=== PATIENT | female | born 1940 | race Caucasian/White ===

== ENCOUNTER 2016-09-25 23:41 | Inpatient (IN) | payer MEDICARE, OTHER ==
[~2016-09-25] VITALS: Ht 162.6 cm; Wt 68.5 kg
[~2016-09-25 23:41] MED LIST: AMLO2.5T PO; ATOR20TA PO; BLOO-129 IN; CARV6.252 PO; DIGO125T20 PO; FERR325T30 PO; FURO40TA5 PO; INSU100V27 SQ; INSU100V7 SQ; LEVO75TA7 PO; LOSA50TA21 PO; NATE120T6 PO; SPIR25TA4 PO; WARF2TAB57 PO
--- NOTE | 2016-09-26 05:15 | NUR ---
RN NOTE PT ARRIVED ON UNIT FROM [place]. AAOX3, IVORIAN/LATVIAN SPEAKING. NO C/O PAIN OR DISCOMFORT AT THIS TIME. COUGH NOTED. C/O OF SOB. PUT ON 2L NC SATTING 97%, HOB ELEVATED 30 DEGREES. SKIN WARM TO TOUCH, NON DIAPHORETIC. SKIN ISSUES NOTED. HARD TO GET A GOOD HEALTH HX FROM PT, SHE STATES SHE GETS CONFUSED. PAGED, AWAITING ORDERS. ORIENATED TO UNIT AND CALL LIGHT. WILL CONT TO MONITOR.
[2016-09-26] MEDS ORDERED: MAG HYDROX/AL HYDROX/SIMETH 30 ML UDC PO PRN (06:00)
[2016-09-26] MEDS ORDERED: ACETAMINOPHEN 325 MG TABLET PO PRN (06:00)
[2016-09-26] MEDS ORDERED: HYDROCODONE/APAP 5/325MG 1 EACH TABLET PO PRN (06:00)
[2016-09-26] MEDS ORDERED: LEVOFLOXACIN 500 MG /D5W 100ML 500 MG in PREMIX 1 EA IV SCH (06:00)
[2016-09-26] MEDS ORDERED: Z GUARD REMEDY 2 OZ OINT TP PRN (06:00)
[2016-09-26] MEDS ORDERED: ZOLPIDEM TARTRATE 5 MG TABLET PO PRN (06:00)
[2016-09-26] MEDS ORDERED: ONDANSETRON HCL/PF 4 MG/2 ML VIAL IVP PRN (06:00)
[2016-09-26] MEDS: PIPERACILLIN /TAZOBACTAM 3.375 G in IV D5W 50 ML IV SCH ×4 (06:00→17:34)
[2016-09-26] MEDS ORDERED: MAGNESIUM HYDROXIDE 30 ML UDC PO PRN (06:00)
--- NOTE | 2016-09-26 06:33 | NUR ---
RN NOTE ANTIBIOTICS PER MD, HOLD ORDERED ABX UNTIL 2100 TONIGHT. WILL NOTIFY PHARMACY. PT RECEIVED 1 G VANCO, 500 MG ZITHROMAX 1 G CEFEPINE AT [facility] 09/25 2099.
[2016-09-26] MEDS ORDERED: IV NS 0.9% 250 ML IV ONE (07:32)
[2016-09-26] MEDS ORDERED: SECONDARY IV SET 1 EA INFUS.SET MC ONE ×2 (07:32→21:27)
[2016-09-26] MEDS ORDERED: IV SET PRIMARY PUMP SET 1 EA INFUS.SET MC ONE ×2 (07:32→07:33)
[2016-09-26 07:50] LABS: PROTHROMBIN TIME 55.8 SECS (9.5-12.7)
--- NOTE | 2016-09-26 07:50 | NUR ---
m/s recreation officer: notes bs [phone]=[phone]. instructed to call for assistance. will monitor.
[2016-09-26 07:51] VITALS: BP 153/63
[2016-09-26 07:56] LABS: INR 4.72 (0.87-1.13)
[2016-09-26 08:00] VITALS: BP 149/77
--- NOTE | 2016-09-26 08:00 | NUR ---
m/s informatics nurse: notes venancio collins ([facility]) here and informed him re: inr result=4.72 with order to hold coumadin dose today. order read back and carried out. will continue to monitor.
[2016-09-26] MEDS: FUROSEMIDE 40 MG TABLET PO SCH (08:54)
[2016-09-26] MEDS: LEVOTHYROXINE SODIUM 75 MCG TABLET PO SCH (08:54)
[2016-09-26] MEDS: NATEGLINIDE 60 MG TABLET PO SCH ×2 (08:54→16:40)
[2016-09-26] MEDS: LOSARTAN POTASSIUM 50 MG TABLET PO SCH (08:54)
[2016-09-26] MEDS: AMLODIPINE BESYLATE 2.5 MG TABLET PO SCH (08:54)
[2016-09-26] MEDS: FERROUS SULFATE (325 MG) 325 MG/TAB TABLET PO SCH (08:55)
[2016-09-26] MEDS: CARVEDILOL 6.25 MG TABLET PO SCH ×2 (08:55→16:40)
[2016-09-26] MEDS: SPIRONOLACTONE 25 MG TABLET PO SCH (08:55)
[2016-09-26] MEDS ORDERED: BLOOD SUGAR DIAGNOSTIC 1 EACH STRIP IN SCH ×2 (09:00→12:00)
[2016-09-26] MEDS ORDERED: WARFARIN SODIUM 2 MG TABLET PO SCH ×2 (09:00)
[2016-09-26] MEDS ORDERED: INSULIN LISPRO 12 UNIT SQ SCH (09:00)
[2016-09-26] MEDS: INSULIN DETEMIR 100 UNIT/ML CARTRIDGE SQ SCH (09:00)
--- NOTE | 2016-09-26 09:10 | NUR ---
m/s funeral service practitioner/embalmer: notes clarify humalog and levemir insulin to pt, but cannot recall, stated, "call my son." called mayco (son) and inform me that pt doesn't take humalog anymore routinely, but it depends on her blood sugar result, and levemir was decrease to 10 units in the morning. Pharmacist (alejo) notified and made aware. awaiting for dr. harris.
--- NOTE | 2016-09-26 10:05 | NUR ---
m/s detective chief: notes dr. harris here and informed pt that pt is on zosyn ivpb and levaquin; also needs sliding scale and informed her that she is no longer on humalog routinely and her lantus has been decrease to 10units daily per family. dr. harris will look into it as stated. will continue to monitor.
[2016-09-26 11:29] LABS: BASOPHILS % (AUTO) 0.2 % (0.0-2.0); EOSINOPHILS # (AUTO) 0.1 /CMM (0.0-0.7); EOSINOPHILS % (AUTO) 1.3 % (0.0-6.0); HEMATOCRIT 29 % (33-45); HEMOGLOBIN 9.7 g/dL (11.5-14.8); LYMPHOCYTES # (AUTO) 0.8 /CMM (0.8-4.8); LYMPHOCYTES % (AUTO) 12.2 % (20.0-44.0); MEAN CORPUSCULAR HEMOGLOBIN 30 PG (26.0-33.0); MEAN CORPUSCULAR HGB CONC 33 g/dl (31.0-36.0); MEAN CORPUSCULAR VOLUME 92 fL (82-100); MONOCYTES # (AUTO) 0.6 /CMM (0.1-1.30); MONOCYTES % (AUTO) 8.8 % (2.0-12.0); NEUTROPHILS # (AUTO) 5.2 /CMM (1.8-8.9); NEUTROPHILS % (AUTO) 77.5 % (43.0-81.0); PLATELET COUNT (AUTO) 201 /CMM (150-450); RDW COEFFICIENT OF VARIATION 14.9 (11.5-15.0); RED BLOOD CELL COUNT(AUTO) 3.19 MIL/uL (4.0-5.2); WHITE BLOOD COUNT (AUTO) 6.7 K/uL (4.3-11.0)
[2016-09-26] MEDS ORDERED: DEXTROSE 50%-WATER 50 ML DISP.SYRIN IV PRN (11:30)
--- NOTE | 2016-09-26 12:00 | NUR ---
m/s typing pool supervisor: notes lunch served with hob elevated. instructed to call for assistance. will monitor.
[2016-09-26] MEDS: BLOOD SUGAR DIAGNOSTIC 1 EACH STRIP VI SCH ×3 (12:19→21:22)
[2016-09-26 12:22] LABS: LACTIC ACID 0.5 mmol/L (0.4-2.0)
[2016-09-26] MEDS: INSULIN REGULAR, HUMAN 100 UNIT/ML 3 ML VIAL SQ PRN ×2 (12:57→21:25)
[2016-09-26] MEDS ORDERED: INSULIN LISPRO 8 UNIT SQ SCH (13:00)
[2016-09-26] MEDS: DIGOXIN 0.125 MG TABLET PO SCH (13:01)
[2016-09-26] MEDS ORDERED: hydrALAZINE HCL 25 MG TABLET PO PRN (14:00)
[2016-09-26 16:00] VITALS: BP 132/71
--- NOTE | 2016-09-26 16:30 | NUR ---
m/s caul puller: notes son visiting at this time and updated plan of care.
[2016-09-26] MEDS: GUAIFENESIN 300 MG/15 ML UDC PO PRN (16:40)
[2016-09-26] MEDS ORDERED: FEE PK DOSING 1 MIN EA MC ONE (16:59)
[2016-09-26] MEDS ORDERED: LEVOFLOXACIN 250 MG /D5W 50 ML 250 MG in PREMIX 1 EA IV SCH (17:00)
--- NOTE | 2016-09-26 19:00 | NUR ---
m/s banquet line cook: notes report given to ramonita (rn) for continuity of care
--- NOTE | 2016-09-26 19:05 | NUR ---
RN NOTES RECEIVED PT AWAKE, HOB ELEVATED, PT ALERT AND ORIENTED X3, NO SOB, NO SIGNS OF DISTRESS. PT DENIES ANY PAIN AND DISCOMFORT, ON O2 INHALATION VIA NC AT 2LPM AND TOLERATED WELL. COUGH AT TIMES, NON PRODUCTIVE. DIMINISHED LUNG SOUNDS UPON AUSCULTATION. IV ACCESS ON LEFT FORE ARM PATENT AND INTACT. KEPT BED IN THE LOWEST POSITION, LOCKED, SIDE RAILS X2 UP, WITH CALL LIGHT WITH IN REACH. KEPT COMFORTABLE AND ATTENDED. WILL CONTINUE TO MONITOR PT. Addendum: 09/27/16 at 0 by NOEL PRICE RN DISREGARD. WRONG DATE OF ENTRY.
[2016-09-26 19:19] LABS: ALBUMIN 3.3 g/dL (3.4-5.0); BILIRUBIN,DIRECT 0.1 mg/dL (0.0-0.2); BILIRUBIN,TOTAL 0.4 mg/dL (0.2-1.0); TOTAL PROTEIN, SERUM 7.1 g/dL (6.4-8.2)
--- NOTE | 2016-09-26 19:30 | NUR ---
MS RN NOTE PATIENT ASLEEP IN BED. EASILY AROUSABLE. NO RESPIRATORY DISTRESS OR SOB NOTED. IV SITE INTACT WITH FLUIDS RUNNING ORDERED. BED LOCKED AND IN LOWEST POSITION, SIDE RAILS UP, CALL LIGHT WITHIN REACH. WILL CONTINUE TO MONITOR.
[2016-09-26 20:00] VITALS: BP 113/59
[2016-09-26 20:04] VITALS: BP 113/59
[2016-09-26] MEDS ORDERED: VANCOMYCIN 1 GM in IV D5W 250 ML IV SCH (21:00)
[2016-09-26] MEDS: ATORVASTATIN 10 MG TABLET PO SCH (21:21)
[2016-09-27] MEDS: PIPERACILLIN /TAZOBACTAM 3.375 G in IV D5W 50 ML IV SCH ×4 (01:03→17:17)
--- NOTE | 2016-09-27 06:33 | NUR ---
MS RN NOTE PATIENT STABLE. BLOOD SUGAR 135. 2 UNITS GIVEN. WILL ENDORSE TO DAY SHIFT FOR JAMAR.
[2016-09-27] MEDS: LEVOTHYROXINE SODIUM 75 MCG TABLET PO SCH (06:57)
[2016-09-27] MEDS: BLOOD SUGAR DIAGNOSTIC 1 EACH STRIP VI SCH ×4 (06:59→21:33)
[2016-09-27] MEDS: INSULIN REGULAR, HUMAN 100 UNIT/ML 3 ML VIAL SQ PRN ×3 (06:59→17:01)
[2016-09-27] MEDS: GUAIFENESIN 300 MG/15 ML UDC PO PRN ×3 (07:04→20:00)
[2016-09-27 08:00] VITALS: BP 116/62
--- NOTE | 2016-09-27 08:00 | NUR ---
m/s physically impaired teacher: initial assessment received pt in bed awake, a/ox3 with dx: pneumonia. no c/o sob, but still with occ non-productive cough. breath sounds diminished jania lobes upon auscultation. instructed to call for assistance. will continue to monitor.
[2016-09-27 08:08] LABS: BASOPHILS % (AUTO) 0.1 % (0.0-2.0); EOSINOPHILS # (AUTO) 0.1 /CMM (0.0-0.7); EOSINOPHILS % (AUTO) 0.7 % (0.0-6.0); HEMATOCRIT 29 % (33-45); HEMOGLOBIN 9.6 g/dL (11.5-14.8); MEAN CORPUSCULAR HEMOGLOBIN 31 PG (26.0-33.0); MEAN CORPUSCULAR HGB CONC 34 g/dl (31.0-36.0); MEAN CORPUSCULAR VOLUME 91 fL (82-100); MONOCYTES # (AUTO) 0.9 /CMM (0.1-1.30); NEUTROPHILS # (AUTO) 6.9 /CMM (1.8-8.9); NEUTROPHILS % (AUTO) 78.2 % (43.0-81.0); PLATELET COUNT (AUTO) 224 /CMM (150-450); RDW COEFFICIENT OF VARIATION 14.5 (11.5-15.0); RED BLOOD CELL COUNT(AUTO) 3.14 MIL/uL (4.0-5.2); WHITE BLOOD COUNT (AUTO) 8.9 K/uL (4.3-11.0)
[2016-09-27 08:12] LABS: CALCIUM, SERUM 8.6 mg/dL (8.5-10.1); CREATININE 1.8 mg/dL (0.6-1.3); INR 3.52 (0.87-1.13); MAGNESIUM 1.8 mg/dL (1.8-2.4); PHOSPHORUS 3.1 mg/dL (2.5-4.9); POTASSIUM 4.1 mmol/L (3.5-5.1); PROTHROMBIN TIME 40.8 SECS (9.5-12.7)
[2016-09-27] MEDS: AMLODIPINE BESYLATE 2.5 MG TABLET PO SCH (08:34)
[2016-09-27] MEDS: LOSARTAN POTASSIUM 50 MG TABLET PO SCH (08:34)
[2016-09-27] MEDS: NATEGLINIDE 60 MG TABLET PO SCH ×2 (08:37→16:45)
[2016-09-27] MEDS: FERROUS SULFATE (325 MG) 325 MG/TAB TABLET PO SCH (08:37)
[2016-09-27] MEDS: FUROSEMIDE 40 MG TABLET PO SCH (08:38)
[2016-09-27] MEDS: SPIRONOLACTONE 25 MG TABLET PO SCH (08:38)
[2016-09-27] MEDS: CARVEDILOL 6.25 MG TABLET PO SCH ×2 (08:39→16:45)
[2016-09-27] MEDS: INSULIN DETEMIR 100 UNIT/ML CARTRIDGE SQ SCH (08:39)
--- NOTE | 2016-09-27 10:00 | NUR ---
m/s roving department supervisor: notes resting comfortable in bed with no distress noted. will monitor.
--- NOTE | 2016-09-27 12:00 | NUR ---
m/s commodity supervisor: garden center manager consult seen by dr. santacruz with no new order.
[2016-09-27] MEDS: DIGOXIN 0.125 MG TABLET PO SCH (13:24)
[2016-09-27 16:00] VITALS: BP 114/71
--- NOTE | 2016-09-27 16:00 | NUR ---
m/s bacteriologist food: nephro f/u seen by dr. manrique.
[2016-09-27] MEDS ORDERED: WARFARIN SODIUM 2 MG TABLET PO SCH (17:00)
--- NOTE | 2016-09-27 18:00 | NUR ---
m/s attending anesthesiologist: notes having dinner with hob elevated at 90 degree at this time. no c/o pain, sob, or any discomfort. needs attended. instructed to call for assistance. will continue to monitor.
--- NOTE | 2016-09-27 19:05 | NUR ---
RN NOTES RECEIVED PT AWAKE, HOB ELEVATED, PT ALERT AND ORIENTED X3, NO SOB, NO SIGNS OF DISTRESS. PT DENIES ANY PAIN AND DISCOMFORT, ON O2 INHALATION VIA NC AT 2LPM AND TOLERATED WELL. COUGH AT TIMES, NON PRODUCTIVE. DIMINISHED LUNG SOUNDS UPON AUSCULTATION. IV ACCESS ON LEFT FORE ARM PATENT AND INTACT. KEPT BED IN THE LOWEST POSITION, LOCKED, SIDE RAILS X2 UP, WITH CALL LIGHT WITH IN REACH. KEPT COMFORTABLE AND ATTENDED. WILL CONTINUE TO MONITOR PT.
[2016-09-27 20:00] VITALS: BP 110/63
--- NOTE | 2016-09-27 20:00 | NUR ---
RN NOTES PT HEARD KEEPS ON COUGHING, ROBITUSSIN 300MG/15ML UDC GIVEN PO AND TOLERATED WELL. WILL CONTINUE TO MONITOR PT.
[2016-09-27] MEDS: LEVOFLOXACIN (500MG) 500 MG TABLET PO SCH (20:19)
[2016-09-27] MEDS: DOXYCYCLINE HYCLATE (100 MG) 100 MG TABLET PO SCH (21:28)
[2016-09-27] MEDS: ATORVASTATIN 10 MG TABLET PO SCH (21:28)
--- NOTE | 2016-09-27 21:33 | NUR ---
RN NOTES BLOOD SUGAR CHECKED 127 MG/DL, NO INSULIN COVERAGE PER SLIDING SCALE.
[2016-09-27 22:00] VITALS: BP 110/63
[2016-09-28] MEDS: GUAIFENESIN 300 MG/15 ML UDC PO PRN ×3 (06:01→17:58)
--- NOTE | 2016-09-28 06:01 | NUR ---
RN NOTES PT WAKES UP COUGHING, NON PRODUCTIVE. ROBITUSSIN 300 MG/15ML UDC GIVEN PO AND TOLERATED WELL. WILL CONTINUE TO MONITOR PT.
[2016-09-28] MEDS: BLOOD SUGAR DIAGNOSTIC 1 EACH STRIP VI SCH ×4 (06:17→22:21)
--- NOTE | 2016-09-28 06:17 | NUR ---
RN NOTES BLOOD SUGAR CHECKED 124 MG/DL, NO INSULIN COVERAGE PER SLIDING SCALE.
--- NOTE | 2016-09-28 07:00 | NUR ---
MS RN INITIAL NOTES REPORT RECEIVED AT THE BEDSIDE. PATIENT IS SLEEPING. NO SOB OR DISTRESS NOTED AT THIS TIME. PATIENT DOES NOT APPEAR TO BE IN PAIN, NO FACIAL GRIMACE NOTED. BED IN A LOW POSITION, CALL LIGHT WITHIN PATIENT REACH. WILL CONTINUE TO MONITOR.
--- NOTE | 2016-09-28 07:11 | NUR ---
RN NOTES PT ASLEEP, HOB ELEVATED, NO SOB, NOT IN DISTRESS TOLERATING O2 INHALATION VIA NC AT 2LPM. VITAL SIGNS STABLE, AFEBRILE. NO EPISODE OF NAUSEA AND VOMITING. DENIES ANY PAIN AND DISCOMFORT. COUGH AT TIMES, NON PRODUCTIVE . ABLE TO AMBULATE WITH STEADY GAIT GOING TO THE BATHROOM. ALL DUE MEDS GIVEN, AND TOLERATED WELL. ALL NEEDS ATTENDED. ENDORSED TO MORNING RN FOR CONTINUITY OF CARE.
[2016-09-28 08:00] VITALS: BP 117/62
[2016-09-28 08:04] LABS: CALCIUM, SERUM 8.8 mg/dL (8.5-10.1); CREATININE 2.1 mg/dL (0.6-1.3); MAGNESIUM 1.8 mg/dL (1.8-2.4); POTASSIUM 4.3 mmol/L (3.5-5.1)
[2016-09-28] MEDS: FERROUS SULFATE (325 MG) 325 MG/TAB TABLET PO SCH (08:16)
[2016-09-28] MEDS: DOXYCYCLINE HYCLATE (100 MG) 100 MG TABLET PO SCH ×2 (08:16→21:32)
[2016-09-28] MEDS: NATEGLINIDE 60 MG TABLET PO SCH ×2 (08:16→16:50)
[2016-09-28] MEDS: LEVOTHYROXINE SODIUM 75 MCG TABLET PO SCH (08:16)
[2016-09-28] MEDS: CARVEDILOL 6.25 MG TABLET PO SCH ×2 (08:16→16:50)
[2016-09-28] MEDS: FUROSEMIDE 40 MG TABLET PO SCH (08:17)
[2016-09-28] MEDS: SPIRONOLACTONE 25 MG TABLET PO SCH (08:17)
[2016-09-28] MEDS: INSULIN DETEMIR 100 UNIT/ML CARTRIDGE SQ SCH (08:18)
[2016-09-28 08:54] LABS: INR 3.09 (0.87-1.13); PROTHROMBIN TIME 35.5 SECS (9.5-12.7)
[2016-09-28] MEDS: DIGOXIN 0.125 MG TABLET PO SCH (12:01)
[2016-09-28] MEDS: IV NS 0.9% 1,000 ML IV PRN (12:02)
[2016-09-28] MEDS: INSULIN REGULAR, HUMAN 100 UNIT/ML 3 ML VIAL SQ PRN ×2 (12:03→16:51)
[2016-09-28 13:28] LABS: APPEARANCE,URINE CLEAR (CLEAR); BILIRUBIN,URINE NEGATIVE (NEGATIVE); BLOOD, URINE TRACE Ery/uL (NEGATIVE); COLOR,URINE YELLOW (YELLOW); KETONES,URINE NEGATIVE (NEGATIVE); LEUKOCYTE ESTERASE ,URINE NEGATIVE (NEGATIVE); NITRITE, URINE NEGATIVE (NEGATIVE); PROTEIN,URINE NEGATIVE (NEGATIVE); UGLUCOSE NEGATIVE (NEGATIVE); UROBILINOGEN,URINE 0.2 EU/dL (0.2)
[2016-09-28 13:38] LABS: ADD URINE CULTURE NO; BACTERIA,URINE None seen /HPF (None Seen); RBC,URINE 0-2 /HPF (0-2); SQUAMOUS EPITHELIAL CELL,UR Few /HPF (None Seen); WBC,URINE NONE SEEN /HPF (0-3)
[2016-09-28 13:51] LABS: EOSINOPHIL,URINE None Seen
[2016-09-28 16:00] VITALS: BP 120/69
[2016-09-28 17:12] VITALS: BP 120/69
[2016-09-28 18:39] LABS: CREATININE, URINE 111.1 MG/DL (30.0-125.0); URINE TOTAL PROTEIN 23.6 mg/dL (0-11.9)
--- NOTE | 2016-09-28 18:45 | NUR ---
MS RN CLOSING NOTES NO SIGNIFICANT CHANGES IN PATIENT CONDITION THROUGHOUT THE SHIFT. NO SOB OR DISTRESS NOTED AT THIS TIME. PATIENT DENIES PAIN. BED IN A LOW POSITION, CALL LIGHT WITHIN PATIENT REACH. WILL ENDORSE FOR JAMAR.
--- NOTE | 2016-09-28 19:25 | NUR ---
MS/BASE LOADER; RECEIVED PT. IN BED AWAKE, ALERT AND ORIENTED. DENIES PAIN. BREATHING NON LABORED. WITH O2 2L NC ON. WITH OCC. DRY COUGH. IVF ON PROGRESS. BED ON LOWER POSITION AND LOCKED FOR SAFETY. SIDE RAILS ARE UP FOR SAFETY. PT INSTRUCTED TO CALL FOR HELP AND CALL LIGHT WITHIN REACH. WILL CONTINUE TO MONITOR.
[2016-09-28 20:00] VITALS: BP_SYST 133; BP_SYST 149; BP_DIAS 64; BP_DIAS 75
[2016-09-28] MEDS: LEVOFLOXACIN (500MG) 500 MG TABLET PO SCH (21:03)
[2016-09-28] MEDS: ATORVASTATIN 10 MG TABLET PO SCH (21:33)
--- NOTE | 2016-09-28 22:00 | NUR ---
MS/PRINTER HELPER; BS 117 NO COVERAGE GIVEN.
--- NOTE | 2016-09-29 00:25 | NUR ---
MS/ASSISTANT HVAC MECHANIC; PT AWAKE COUGHING AND WANTS COUGH MED. ROBITUSSIN 300 MG PO 15 ML Q6 PRN GIVEN ORDERED.
[2016-09-29] MEDS: GUAIFENESIN 300 MG/15 ML UDC PO PRN ×2 (00:26→22:00)
[2016-09-29] MEDS: IV NS 0.9% 1,000 ML IV PRN ×2 (01:09→19:36)
[2016-09-29] MEDS: BLOOD SUGAR DIAGNOSTIC 1 EACH STRIP VI SCH ×4 (05:37→21:54)
--- NOTE | 2016-09-29 06:00 | NUR ---
MS/SUPERVISOR EXTRUDING DEPARTMENT; BS 109 NO COVERAGE.
[2016-09-29 06:32] LABS: BASOPHILS % (AUTO) 0.4 % (0.0-2.0); EOSINOPHILS # (AUTO) 0.2 /CMM (0.0-0.7); EOSINOPHILS % (AUTO) 2.3 % (0.0-6.0); HEMATOCRIT 27 % (33-45); HEMOGLOBIN 9.1 g/dL (11.5-14.8); LYMPHOCYTES # (AUTO) 1.1 /CMM (0.8-4.8); LYMPHOCYTES % (AUTO) 14.2 % (20.0-44.0); MEAN CORPUSCULAR HEMOGLOBIN 31 PG (26.0-33.0); MEAN CORPUSCULAR HGB CONC 34 g/dl (31.0-36.0); MEAN CORPUSCULAR VOLUME 92 fL (82-100); MONOCYTES # (AUTO) 0.9 /CMM (0.1-1.30); MONOCYTES % (AUTO) 11.8 % (2.0-12.0); NEUTROPHILS # (AUTO) 5.3 /CMM (1.8-8.9); NEUTROPHILS % (AUTO) 71.3 % (43.0-81.0); PLATELET COUNT (AUTO) 282 /CMM (150-450); RDW COEFFICIENT OF VARIATION 14.3 (11.5-15.0); RED BLOOD CELL COUNT(AUTO) 2.92 MIL/uL (4.0-5.2); WHITE BLOOD COUNT (AUTO) 7.4 K/uL (4.3-11.0)
[2016-09-29 06:37] LABS: INR 2.69 (0.87-1.13); PROTHROMBIN TIME 30.6 SECS (9.5-12.7)
--- NOTE | 2016-09-29 06:44 | NUR ---
MS/STAFF RESEARCH SCIENTIST; SLEPT FAIRLY. IVF ON PROGRESS. DENIES PAIN. BREATHING NON LABORED. CONTINUE TO MONITOR. CALL LIGHT WITHIN REACH. WILL ENDORSE TO THE DAY SHIFT NURSE.
[2016-09-29 06:59] LABS: ALBUMIN 2.9 g/dL (3.4-5.0); BILIRUBIN,TOTAL 0.4 mg/dL (0.2-1.0); MAGNESIUM 1.9 mg/dL (1.8-2.4); PHOSPHORUS 3.2 mg/dL (2.5-4.9); POTASSIUM 4.2 mmol/L (3.5-5.1); TOTAL PROTEIN, SERUM 6.8 g/dL (6.4-8.2)
--- NOTE | 2016-09-29 07:25 | NUR ---
RN MS NOTES PATIENT IN BED, ALERT AND ORIENTED, DENIES PAIN OR DISCOMFORT AT THIS TIME, DISCUSSED PLAN OF CARE FOR TODAY AND AGREED, SAFETY MEASURES IN PLACED, CALL LIGHT WITHIN REACH, WILL CONTINUE TO MONITOR.
[2016-09-29 08:00] VITALS: BP 135/73
[2016-09-29] MEDS: FERROUS SULFATE (325 MG) 325 MG/TAB TABLET PO SCH (08:25)
[2016-09-29] MEDS: DOXYCYCLINE HYCLATE (100 MG) 100 MG TABLET PO SCH ×2 (08:25→20:52)
[2016-09-29] MEDS: SPIRONOLACTONE 25 MG TABLET PO SCH (08:25)
[2016-09-29] MEDS: LEVOTHYROXINE SODIUM 75 MCG TABLET PO SCH (08:25)
[2016-09-29] MEDS: NATEGLINIDE 60 MG TABLET PO SCH ×2 (08:26→17:10)
[2016-09-29] MEDS: CARVEDILOL 6.25 MG TABLET PO SCH ×2 (08:26→17:10)
[2016-09-29] MEDS: INSULIN DETEMIR 100 UNIT/ML CARTRIDGE SQ SCH (08:36)
[2016-09-29 09:51] LABS: APPEARANCE,URINE CLEAR (CLEAR); BILIRUBIN,URINE NEGATIVE (NEGATIVE); BLOOD, URINE TRACE-INTA Ery/uL (NEGATIVE); COLOR,URINE YELLOW (YELLOW); KETONES,URINE NEGATIVE (NEGATIVE); LEUKOCYTE ESTERASE ,URINE NEGATIVE (NEGATIVE); NITRITE, URINE NEGATIVE (NEGATIVE); PH,URINE 5.5 (5.0-8.0); PROTEIN,URINE NEGATIVE (NEGATIVE); UGLUCOSE NEGATIVE (NEGATIVE); UROBILINOGEN,URINE 0.2 EU/dL (0.2)
[2016-09-29 09:54] LABS: ADD URINE CULTURE NO; BACTERIA,URINE None seen /HPF (None Seen); EOSINOPHIL,URINE None Seen; RBC,URINE 0-2 /HPF (0-2); SQUAMOUS EPITHELIAL CELL,UR Few /HPF (None Seen); WBC,URINE NONE SEEN /HPF (0-3)
[2016-09-29 09:58] LABS: CREATININE, URINE 45.4 MG/DL (30.0-125.0); URINE TOTAL PROTEIN 20.2 mg/dL (0-11.9)
--- NOTE | 2016-09-29 12:00 | NUR ---
RN MS NOTES BLOOD SUGAR 227, 6 UNITS GIVEN. PATIENT SITTING ON THE CHAIR, NO DISTRESS NOTED.
[2016-09-29] MEDS: INSULIN REGULAR, HUMAN 100 UNIT/ML 3 ML VIAL SQ PRN ×2 (12:05→17:16)
[2016-09-29] MEDS: DIGOXIN 0.125 MG TABLET PO SCH (13:13)
[2016-09-29 16:00] VITALS: BP 127/61
--- NOTE | 2016-09-29 17:00 | NUR ---
RN MS NOTES ALL DUE MEDS GIVEN, BS 248 6 UNITS GIVEN, WILL CONTINUE TO MONITOR.
[2016-09-29] MEDS: WARFARIN SODIUM 2.5 MG TABLET PO SCH (17:11)
--- NOTE | 2016-09-29 18:36 | NUR ---
RN MS NOTES PATIENT SITTING ON THE CHAIR, ALERT AND ORIENTED, NO SIGNIFICANT CHANGES THIS SHIFT, DENIES PAIN OR DISCOMFORT, FAMILY AT BEDSIDE, BROUGHT CAKE TO CELEBRATE PATIENT'S BIRTHDAY TODAY, ALL DUE MEDS PROVIDED, PIV ON LFA PATENT AND INTACT WITH NS INFUSING AT 75ML/HR. SAFETY MEASURES IN PLACED, CALL LIGHT WITHIN REACH, WILL ENDORSE TO VACUUM TRUCK DRIVER.
--- NOTE | 2016-09-29 19:15 | NUR ---
MS/REHAB SERVICES AIDE; RECEIVED PT. IN BED AWAKE, ALERT AND ORIENTED. DENIES PAIN. BREATHING NON LABORED. NO S/S OF DISTRESS. IVF ON PROGRESS. BED ON LOWER POSITION AND LOCKED FOR SAFETY. UPPER PART OF BED SIDE RAILS ARE UP FOR SAFETY. PT INSTRUCTED TO CALL FOR HELP AND CALL LIGHT WITHIN REACH. WILL CONTINUE TO MONITOR.
[2016-09-29] MEDS: LEVOFLOXACIN (500MG) 500 MG TABLET PO SCH (19:42)
[2016-09-29 20:17] VITALS: BP 120/58
[2016-09-29] MEDS: *INSULIN REGULAR(HUMULIN R)HUM 100 UNIT/ML VIAL SQ PRN (21:47)
[2016-09-29] MEDS: ATORVASTATIN 10 MG TABLET PO SCH (21:59)
--- NOTE | 2016-09-29 22:00 | NUR ---
MS/PROVISIONING SPECIALIST; BS 144 COVERED WITH 2 UNITS REGULAR INSULIN SQ. COUGH MED GIVEN AT THIS TIME ALSO ROBITUSSIN 300 MG / 15 ML PO Q6 PRN.
[2016-09-30] MEDS: BLOOD SUGAR DIAGNOSTIC 1 EACH STRIP VI SCH ×4 (06:00→22:47)
--- NOTE | 2016-09-30 06:00 | NUR ---
MS/AIR OPERATIONS MANAGER; BS 129 NO COVERAGE GIVEN.
[2016-09-30] MEDS: GUAIFENESIN 300 MG/15 ML UDC PO PRN ×2 (06:07→17:19)
--- NOTE | 2016-09-30 07:00 | NUR ---
MS/COOPERATIVE MANAGER; SLEPT FAIRLY. COUGH STILL NOTED. VOIDED AND HAD BM X 1. DENIES PAIN. BREATHING NON LABORED. CONTINUE TO MONITOR. CALL LIGHT WITHIN REACH. WILL ENDORSE TO THE DAY SHIFT NURSE.
--- NOTE | 2016-09-30 07:15 | NUR ---
RN MS NOTES PATIENT IN BED, ALERT AND ORIENTED, DENIES PAIN OR DISCOMFORT AT THIS TIME, NO DISTRESS NOTED, SAFETY MEASURES IN PLACED, CALL LIGHTW ITHIN REACH WILL CONTINUE TO MONITOR.
[2016-09-30 07:18] LABS: BASOPHILS % (AUTO) 0.4 % (0.0-2.0); EOSINOPHILS # (AUTO) 0.2 /CMM (0.0-0.7); EOSINOPHILS % (AUTO) 3.2 % (0.0-6.0); HEMATOCRIT 28 % (33-45); HEMOGLOBIN 9.4 g/dL (11.5-14.8); LYMPHOCYTES % (AUTO) 14.2 % (20.0-44.0); MEAN CORPUSCULAR HEMOGLOBIN 31 PG (26.0-33.0); MEAN CORPUSCULAR HGB CONC 34 g/dl (31.0-36.0); MEAN CORPUSCULAR VOLUME 92 fL (82-100); MONOCYTES # (AUTO) 0.8 /CMM (0.1-1.30); MONOCYTES % (AUTO) 11.5 % (2.0-12.0); NEUTROPHILS % (AUTO) 70.7 % (43.0-81.0); PLATELET COUNT (AUTO) 328 /CMM (150-450); RDW COEFFICIENT OF VARIATION 14.2 (11.5-15.0); RED BLOOD CELL COUNT(AUTO) 3.06 MIL/uL (4.0-5.2)
[2016-09-30 07:28] LABS: CREATININE 1.8 mg/dL (0.6-1.3); MAGNESIUM 1.8 mg/dL (1.8-2.4); POTASSIUM 4.5 mmol/L (3.5-5.1)
[2016-09-30 08:04] VITALS: BP 142/76
[2016-09-30] MEDS: CARVEDILOL 6.25 MG TABLET PO SCH ×2 (08:44→17:13)
[2016-09-30] MEDS: NATEGLINIDE 60 MG TABLET PO SCH ×2 (08:44→17:13)
[2016-09-30] MEDS: LEVOTHYROXINE SODIUM 75 MCG TABLET PO SCH (08:44)
[2016-09-30] MEDS: DOXYCYCLINE HYCLATE (100 MG) 100 MG TABLET PO SCH ×2 (08:44→20:12)
[2016-09-30] MEDS: SPIRONOLACTONE 25 MG TABLET PO SCH (08:44)
[2016-09-30] MEDS: FERROUS SULFATE (325 MG) 325 MG/TAB TABLET PO SCH (08:44)
[2016-09-30] MEDS: INSULIN DETEMIR 100 UNIT/ML CARTRIDGE SQ SCH (08:50)
[2016-09-30] MEDS: INSULIN REGULAR, HUMAN 100 UNIT/ML 3 ML VIAL SQ PRN (11:25)
--- NOTE | 2016-09-30 12:30 | NUR ---
RN MS NOTES PATIENT'S BS 192 AND GAVE 3 UNITS OF INSULIN, PIV ON LFA HEPLOCK, PATIENT TOLERATED CURRENT DIET, ENCOURAGED FLUIDS TOLERATED, PATIENT SITTING ON THE CHAIR, IN STABLE CONDITION. SAFETY MEASURES OBSERVED, WILL CONTINUE TO MONITOR.
[2016-09-30 13:13] LABS: PTH, INTACT 90 pg/mL (15-65)
[2016-09-30] MEDS: DIGOXIN 0.125 MG TABLET PO SCH (14:07)
[2016-09-30 16:05] VITALS: BP 147/72
[2016-09-30 16:54] LABS: INR 2.22 (0.87-1.13)
[2016-09-30] MEDS: WARFARIN SODIUM 2.5 MG TABLET PO SCH (17:17)
--- NOTE | 2016-09-30 17:30 | NUR ---
RN MS NOTES BS 80, NO INSULIN COVERAGE NEEDED, NO DISTRESS NOTED, PATIENT EATING DINNER, AND TOLERATING WELL, GUAIFENESIN MEDICINE ADMINISTERED FOR COUGH AT 1719, ALL DUE MEDS GIVEN, PATIENT IN STABLE CONDITION, DENIES PAIN AT THIS TIME, SAFETY MEASURES IN PLACED, ASSISTED WITH ADLS, CALL LIGHT WITHIN REACH, WILL ENDORSE TO SALES AND MARKETING ASSOCIATE FOR JAMAR.
--- NOTE | 2016-09-30 18:58 | NUR ---
RN MS NOTES NO SIGNIFICANT CHANGES THIS SHIFT, WILL ENDORSE TO CHIEF COMPLIANCE OFFICER FOR JAMAR.
--- NOTE | 2016-09-30 19:00 | NUR ---
RN NOTE RECEIVED REPORT. PT AWAKE AND ALERT X 3,. NO S/S OF PAIN OR DISCOMFORT, BREATHING EVEN AND NON-LABORED ON ROOM AIR. LFA INTACT AND PATENT H/L. CALL LIGHT IN REACH, FAMILY AT BEDSIDE. WILL CONT TO MONITOR.
[2016-09-30 20:00] VITALS: BP 118/66
[2016-09-30] MEDS: LEVOFLOXACIN (500MG) 500 MG TABLET PO SCH (20:12)
[2016-09-30] MEDS: ATORVASTATIN 10 MG TABLET PO SCH (20:37)
--- NOTE | 2016-09-30 20:59 | NUR ---
report given to martir for megan
--- NOTE | 2016-09-30 21:00 | NUR ---
RN INITIAL NOTE RECEIVED PT IN NO ACUTE DISTRESS IN BED. PT IS A/O X 3 AND ABLE TO MAKE NEEDS KNOWN. PT IS GREENLAND[place] SPEAKING, BUT UNDERSTANDS CENTRAL AFRICAN. PT IS ON 2L NC AND TOLERATING WELL WITH O2 SAT @ 98%. PT DENIES ANY SOB OR DIFFICULTY BREATHING, BUT STATED A HEADACHE AND PAIN MANAGEMENT WAS INITIATED AND PAIN MEDICATION WAS GIVEN. PT HAS LFA 18G THAT IS CLEAN DRY INTACT AND PATENT WITH SALINE FLUSH. BED IN LOW LOCK POSITION WITH RIALS UP X 2. CALL LIGHT WITHIN REACH AND ALL SAFETY MEASURES ENSURED AND CARRIED OUT. WILL CONTINUE TO MONITOR PT.
[2016-09-30] MEDS: *INSULIN REGULAR(HUMULIN R)HUM 100 UNIT/ML VIAL SQ PRN (22:45)
[2016-10-01] MEDS: BLOOD SUGAR DIAGNOSTIC 1 EACH STRIP VI SCH ×2 (06:33→12:14)
--- NOTE | 2016-10-01 06:39 | NUR ---
RN CLOSING NOTE PT REMAINS IN NO ACUTE DISTRESS IN BED. PT DID NOT HAVE ANY SIGNIFICANT CHANGE IN CONDITION DURING SHIFT. ALL NEEDS MET, ALL ORDERS CARRIED OUT AND ALL WOUND CARE ORDERS CARRIED OUT WELL. WILL ENDORSE REPORT TO AM RN FOR CONTINUITY OF CARE.
[2016-10-01 06:45] LABS: CALCIUM, SERUM 9.4 mg/dL (8.5-10.1); CREATININE 1.6 mg/dL (0.6-1.3); POTASSIUM 4.5 mmol/L (3.5-5.1)
--- NOTE | 2016-10-01 07:20 | NUR ---
M/S RN - OPENING NOTE PT RESTING IN BED, AOX4. NO S/S OF DISTRESS. DENIES SOB ON RA. C/O PRODUCTIVE COUGH WITH WHITE PHLEM. DENIES PAIN AT THIS TIME. IVF RUNNING ORDERED. SIDE RAILS UPX2, CALL LIGHT WITHIN REACH, BED LOCKED AND IN LOWEST POSITION.
[2016-10-01 08:00] VITALS: BP 147/76
[2016-10-01] MEDS: DOXYCYCLINE HYCLATE (100 MG) 100 MG TABLET PO SCH (08:37)
[2016-10-01 08:38] VITALS: BP 147/76
[2016-10-01] MEDS: FERROUS SULFATE (325 MG) 325 MG/TAB TABLET PO SCH (08:38)
[2016-10-01] MEDS: LEVOTHYROXINE SODIUM 75 MCG TABLET PO SCH (08:38)
[2016-10-01] MEDS: SPIRONOLACTONE 25 MG TABLET PO SCH (08:38)
[2016-10-01] MEDS: CARVEDILOL 6.25 MG TABLET PO SCH (08:38)
[2016-10-01] MEDS: NATEGLINIDE 60 MG TABLET PO SCH (08:38)
[2016-10-01] MEDS: INSULIN DETEMIR 100 UNIT/ML CARTRIDGE SQ SCH (09:00)
--- NOTE | 2016-10-01 09:31 | NUR ---
M/S RN - NOTE HELD MARLINE, LAST FSBS 108 WILL CONTINUE TO MONITOR.
[2016-10-01] MEDS ORDERED: Doxycycline Hyclate PO (10:02)
[2016-10-01] MEDS ORDERED: LEVO500T15 PO (10:02)
--- NOTE | 2016-10-01 12:00 | NUR ---
M/S RN - DISCHARGE ORDERS RECEIVED FOR DISCHARGE. PT STABLE. IV DC'D WITH CATHETER INTACT. DISCHARGE INSTRUCTIONS GIVEN TO PT AND PT'S SON VERBALLY AND WRITTEN. PT DENIES SOB ON RA. CONFIRMED WITH SON PT HAS OWN HOME HEALTH CARE SET UP. ALL BELONGINGS WITH PT EXCEPT FOR BLANKET, NURSING TECHNICAL SALES REPRESENTATIVES MADE AWARE. PT WHEEL CHAIRED TO PRIVATE CARE.
[2016-10-03 15:54] LABS: *SPE A/G RATIO 1.2 (0.7-1.7); *SPE ALBUMIN 3.3 g/dL (2.9-4.4); *SPE ALPHA-1-GLOBULIN 0.3 g/dL (0.0-0.4); *SPE ALPHA-2-GLOBULIN 0.6 g/dL (0.4-1.0); *SPE GLOBULIN, TOTAL 2.8 g/dL (2.2-3.9); *SPE M-SPIKE Not Observed g/dL (Not Observed); *SPE PROTEIN TOTAL 6.1 g/dL (6.0-8.5)
== END 2016-10-01 12:40 | disposition home health service (06) | DRG 177 ==
LOC: MED 09-26 05:02
PROVIDERS: ADMIT Family Medicine; ATTEND Internal Medicine
DX: J15.6 Pneumonia due to other Gram-negative bacteria (principal); R53.2 Functional quadriplegia; N17.0 Acute kidney failure with tubular necrosis; L03.90 Cellulitis, unspecified; I69.359 Hemiplegia and hemiparesis following cerebral infarction affecting unspecified side; I13.0 Hypertensive heart and chronic kidney disease with heart failure and stage 1 through stage 4 chronic kidney disease, or unspecified chronic kidney disease; J98.11 Atelectasis; I25.10 Atherosclerotic heart disease of native coronary artery without angina pectoris; Z95.1 Presence of aortocoronary bypass graft; J06.9 Acute upper respiratory infection, unspecified; I87.2 Venous insufficiency (chronic) (peripheral); Z74.01 Bed confinement status; I50.9 Heart failure, unspecified; N18.9 Chronic kidney disease, unspecified; E78.5 Hyperlipidemia, unspecified; E11.22 Type 2 diabetes mellitus with diabetic chronic kidney disease; K21.9 Gastro-esophageal reflux disease without esophagitis; F41.9 Anxiety disorder, unspecified; Z86.718 Personal history of other venous thrombosis and embolism; Z79.01 Long term (current) use of anticoagulants; Z95.2 Presence of prosthetic heart valve; Z95.0 Presence of cardiac pacemaker; I25.2 Old myocardial infarction; I35.0 Nonrheumatic aortic (valve) stenosis; I87.8 Other specified disorders of veins; J20.9 Acute bronchitis, unspecified; Z79.4 Long term (current) use of insulin; S80.211A Abrasion, right knee, initial encounter; S81.801A Unspecified open wound, right lower leg, initial encounter; W19.XXXA Unspecified fall, initial encounter
CPT/HCPCS: 36415; 71010-TC; 80048-TC; 80053-TC; 80061-TC; 80076-TC; 80162-TC; 81000-TC; 82550-TC; 82570-TC; 82962-TC; 83540-TC; 83605-TC; 83735-TC; 83970; 84100-TC; 84155; 84155-TC; 84165; 84300-TC; 85025-TC; 85610-TC; 87040-TC; 87070-TC; 87081-TC; 94799-TC; A4216; J1815; J1956; J2543; J3370; J7030; J7050; J7060; Z7610

== ENCOUNTER 2023-08-16 13:49 | Inpatient (IN) | payer MEDICARE, OTHER ==
[~2023-08-16] VITALS: Ht 170.2 cm; Wt 59.9 kg
[~2023-08-16 13:49] MED LIST changes: -AMLO2.5T PO; +AMLO2.5T4 PO; +Doxycycline Hyclate PO; +LEVO500T2 PO; -LOSA50TA21 PO; +LOSA50TA39 PO; -SPIR25TA4 PO; +SPIR25TA6 PO
[2023-08-16] MEDS: IV NS 0.9% 500 ML BAG IV ONE (14:00)
[2023-08-16] MEDS: ONDANSETRON HCL/PF 4 MG/2 ML VIAL IVP ONE (14:00)
[2023-08-16] MEDS ORDERED: ONDANSETRON HCL/PF 4 MG/2 ML VIAL ONE (14:06)
[2023-08-16 14:48] LABS: BASOPHILS % (AUTO) 0.3 % (0.0-2.0); EOSINOPHILS # (AUTO) 0.1 K/uL (0.0-0.7); EOSINOPHILS % (AUTO) 1.5 % (0.0-6.0); LYMPHOCYTES # (AUTO) 0.7 K/uL (0.8-4.8); LYMPHOCYTES % (AUTO) 7.3 % (20.0-44.0); MEAN CORPUSCULAR HEMOGLOBIN 35 PG (26.0-33.0); MEAN CORPUSCULAR HGB CONC 35 g/dl (31.0-36.0); MEAN CORPUSCULAR VOLUME 103 fL (82-100); MONOCYTES # (AUTO) 0.7 K/uL (0.1-1.30); MONOCYTES % (AUTO) 7.2 % (2.0-12.0); NEUTROPHILS # (AUTO) 8.3 K/uL (1.8-8.9); NEUTROPHILS % (AUTO) 83.7 % (43.0-81.0); PLATELET COUNT (AUTO) 303 K/uL (150-450); RED CELL DISTRIBUTION WIDTH 17.4 % (11.5-15.0)
[2023-08-16 14:53] LABS: HEMATOCRIT 14 % (33-45)
[2023-08-16 14:58] LABS: CALCIUM, SERUM 7.5 mg/dL (8.5-10.1); CREATININE 1.2 mg/dL (0.6-1.3); POTASSIUM 3.2 mmol/L (3.5-5.1)
[2023-08-16 15:12] LABS: THYROID STIMULATING HORMONE 5.018 uIU/mL (0.358-3.74)
[2023-08-16 15:13] LABS: ALBUMIN 2.7 g/dL (3.4-5.0); ANISOCYTOSIS 1+; BILIRUBIN,DIRECT 0.1 mg/dL (0.0-0.2); BILIRUBIN,TOTAL 0.4 mg/dL (0.2-1.0); EOSINOPHILS % (MANUAL) 2 % (0-4); HYPOCHROMASIA 1+; LYMPHOCYTES % (MANUAL) 5 % (16-48); MONOCYTES % (MANUAL) 4 % (0-11.0); NEUTROPHILS % (MANUAL) 89 (42-76); PLATELET ESTIMATE ADEQUATE; TOTAL PROTEIN, SERUM 5.7 g/dL (6.4-8.2)
[2023-08-16 15:14] LABS: OVALOCYTES 1+
[2023-08-16] MEDS ORDERED: ACET-2605 PO (16:08)
[2023-08-16] MEDS ORDERED: ONDA4TAB5 PO (16:08)
[2023-08-16] MEDS ORDERED: EPOE1VIA4 IVP (16:08)
[2023-08-16] MEDS ORDERED: AMLO10TA4 PO (16:08)
[2023-08-16] MEDS ORDERED: MELA1TAB47 PO (16:08)
[2023-08-16] MEDS ORDERED: WARF2.5T85 PO (16:08)
[2023-08-16] MEDS ORDERED: IRON100V6 IV (16:08)
[2023-08-16] MEDS ORDERED: CARV3.12 PO (16:08)
[2023-08-16] MEDS ORDERED: CINA30TA2 PO (16:08)
[2023-08-16] MEDS ORDERED: HEPARIN SODIUM XX (16:08)
[2023-08-16] MEDS ORDERED: ACET-868 PO (16:08)
[2023-08-16] MEDS ORDERED: [UNRECOGNIZED DRUG - CODE] IV (16:08)
[2023-08-16] MEDS ORDERED: HEPARIN SODIUM IV (16:08)
[2023-08-16] MEDS ORDERED: LOPE2TAB25 PO (16:08)
[2023-08-16] MEDS ORDERED: HEPA20DI7 IM (16:08)
[2023-08-16] MEDS ORDERED: ATOR40TA PO (16:08)
[2023-08-16] MEDS ORDERED: SACU1TAB PO (16:08)
[2023-08-16] MEDS ORDERED: AMIN30LI66 PO (16:08)
[2023-08-16] MEDS ORDERED: DEXT38GE12 PO (16:08)
[2023-08-16] MEDS ORDERED: ONDANSETRON HCL/PF 4 MG/2 ML VIAL IVP PRN (16:30)
[2023-08-16] MEDS ORDERED: ACETAMINOPHEN 325 MG TABLET PO PRN (16:30)
[2023-08-16] MEDS: PANTOPRAZOLE 40 MG VIAL IV ONE (16:50)
[2023-08-16] MEDS: CARVEDILOL 3.125 MG TABLET PO SCH (17:00)
[2023-08-16 18:12] LABS: FERRITIN 993 ng/mL (8-388); IRON, SERUM 89 ug/dl (50-175)
[2023-08-16 20:00] VITALS: BP 140/59; TEMP 97.4; O2SAT 98
[2023-08-16] MEDS: METOCLOPRAMIDE HCL 10 MG/2 ML VIAL IV SCH (20:19)
[2023-08-16] MEDS: EPOETIN ALFA-EPBX 4,000 UNIT/ML VIAL IV SCH (20:25)
[2023-08-16 20:30] VITALS: BP 140/59; TEMP 97.4
[2023-08-16] MEDS: AMLODIPINE BESYLATE 10 MG TABLET PO SCH (22:00)
[2023-08-16 22:54] VITALS: BP 153/66; TEMP 97.9
[2023-08-16] MEDS: PANTOPRAZOLE 40 MG VIAL IV SCH (23:23)
[2023-08-16 23:30] VITALS: BP 156/60; TEMP 97.7
[2023-08-17] VITALS (11 sets, daily range): BP systolic 129–159; BP diastolic 56–71; TEMP 97.7–99; O2SAT 94–100
[2023-08-17 04:05] LABS: BASOPHILS % (AUTO) 0.3 % (0.0-2.0); EOSINOPHILS # (AUTO) 0.1 K/uL (0.0-0.7); EOSINOPHILS % (AUTO) 1.1 % (0.0-6.0); HEMATOCRIT 23 % (33-45); HEMOGLOBIN 8.2 g/dL (11.5-14.8); LYMPHOCYTES # (AUTO) 1.2 K/uL (0.8-4.8); LYMPHOCYTES % (AUTO) 11.4 % (20.0-44.0); MEAN CORPUSCULAR HEMOGLOBIN 33 PG (26.0-33.0); MEAN CORPUSCULAR HGB CONC 35 g/dl (31.0-36.0); MEAN CORPUSCULAR VOLUME 96 fL (82-100); MONOCYTES # (AUTO) 0.9 K/uL (0.1-1.30); MONOCYTES % (AUTO) 8.7 % (2.0-12.0); NEUTROPHILS # (AUTO) 8.1 K/uL (1.8-8.9); NEUTROPHILS % (AUTO) 78.5 % (43.0-81.0); PLATELET COUNT (AUTO) 282 K/uL (150-450); RED BLOOD CELL COUNT(AUTO) 2.45 MIL/uL (4.0-5.2); RED CELL DISTRIBUTION WIDTH 17.8 % (11.5-15.0); WHITE BLOOD COUNT (AUTO) 10.3 K/uL (4.3-11.0)
[2023-08-17 04:22] LABS: ALANINE AMINOTRANSFERASE 18 U/L (12-78); ALBUMIN 2.8 g/dL (3.4-5.0); ALKALINE PHOSPHATASE 211 U/L (46-116); ASPARTATE AMINOTRANSFERASE 21 U/L (15-37); BILIRUBIN,TOTAL 0.5 mg/dL (0.2-1.0); CALCIUM, SERUM 7.4 mg/dL (8.5-10.1); CARBON DIOXIDE 31 mmol/L (21-32); CHLORIDE 97 mmol/L (98-107); CREATININE 1.8 mg/dL (0.6-1.3); GLUCOSE 89 mg/dL (74-106); MAGNESIUM 1.7 mg/dL (1.8-2.4); PHOSPHORUS 2.7 mg/dL (2.5-4.9); POTASSIUM 3.8 mmol/L (3.5-5.1); SODIUM SERUM 134 mmol/L (136-145); TOTAL PROTEIN, SERUM 5.9 g/dL (6.4-8.2); UREA NITROGEN, BLOOD 21 mg/dL (7-18)
[2023-08-17] MEDS: FERROUS SULFATE (325 MG) 325 MG/TAB TABLET PO SCH (09:00)
[2023-08-17] MEDS: INSULIN GLARGINE, 100 UNIT/ML CARTRIDGE SQ SCH (09:00)
[2023-08-17] MEDS: ATORVASTATIN 40 MG TABLET PO SCH (09:00)
[2023-08-17] MEDS: CINACALCET HCL 30 MG TABLET PO SCH (09:00)
[2023-08-17 09:42] LABS: INR 3.95 (0.91-1.10); PROTHROMBIN TIME 38.3 SECS (9.2-11.1)
[2023-08-17] MEDS: Magnesium 1GM/D5W 100ML PREMIX 100 ML IV SCH (10:30)
[2023-08-17] MEDS ORDERED: FAMOTIDINE/PF INJ 20 MG/2 ML VIAL IV ONE (21:09)
[2023-08-18] VITALS (8 sets, daily range): BP systolic 123–164; BP diastolic 56–73; TEMP 97.7–99.1; O2SAT 95–100
[2023-08-18 09:19] LABS: BASOPHILS % (AUTO) 0.4 % (0.0-2.0); EOSINOPHILS # (AUTO) 0.1 K/uL (0.0-0.7); HEMATOCRIT 25 % (33-45); HEMOGLOBIN 8.4 g/dL (11.5-14.8); LYMPHOCYTES # (AUTO) 0.9 K/uL (0.8-4.8); LYMPHOCYTES % (AUTO) 9.5 % (20.0-44.0); MEAN CORPUSCULAR HEMOGLOBIN 33 PG (26.0-33.0); MEAN CORPUSCULAR HGB CONC 34 g/dl (31.0-36.0); MEAN CORPUSCULAR VOLUME 98 fL (82-100); MONOCYTES % (AUTO) 10.7 % (2.0-12.0); NEUTROPHILS % (AUTO) 78.4 % (43.0-81.0); PLATELET COUNT (AUTO) 304 K/uL (150-450); RED CELL DISTRIBUTION WIDTH 18.6 % (11.5-15.0)
[2023-08-18 09:39] LABS: INR 2.57 (0.91-1.10); PROTHROMBIN TIME 25.6 SECS (9.2-11.1)
[2023-08-18] MEDS: WARFARIN SODIUM 2 MG TABLET PO SCH (16:08)
[2023-08-19] VITALS: BP 126/50; TEMP 99.5; O2SAT 98
[2023-08-19 03:08] LABS: OCCULT BLOOD STOOL POSITIVE (NEGATIVE)
[2023-08-19 08:00] VITALS: BP 140/61; TEMP 98.4; O2SAT 97
[2023-08-19] MEDS ORDERED: IV 1/2NS 1000 ML 1,000 ML IV PRN (10:30)
[2023-08-19 11:40] LABS: BASOPHILS % (AUTO) 0.4 % (0.0-2.0); EOSINOPHILS # (AUTO) 0.1 K/uL (0.0-0.7); EOSINOPHILS % (AUTO) 1.2 % (0.0-6.0); HEMATOCRIT 24 % (33-45); HEMOGLOBIN 8.2 g/dL (11.5-14.8); LYMPHOCYTES # (AUTO) 0.6 K/uL (0.8-4.8); LYMPHOCYTES % (AUTO) 8.1 % (20.0-44.0); MEAN CORPUSCULAR HEMOGLOBIN 34 PG (26.0-33.0); MEAN CORPUSCULAR HGB CONC 34 g/dl (31.0-36.0); MEAN CORPUSCULAR VOLUME 100 fL (82-100); MONOCYTES % (AUTO) 12.1 % (2.0-12.0); NEUTROPHILS # (AUTO) 6.2 K/uL (1.8-8.9); NEUTROPHILS % (AUTO) 78.2 % (43.0-81.0); PLATELET COUNT (AUTO) 277 K/uL (150-450); RED BLOOD CELL COUNT(AUTO) 2.44 MIL/uL (4.0-5.2); RED CELL DISTRIBUTION WIDTH 19.7 % (11.5-15.0); WHITE BLOOD COUNT (AUTO) 7.9 K/uL (4.3-11.0)
[2023-08-19 11:55] LABS: CALCIUM, SERUM 7.9 mg/dL (8.5-10.1); CARBON DIOXIDE 23 mmol/L (21-32); CHLORIDE 107 mmol/L (98-107); CREATININE 2.3 mg/dL (0.6-1.3); GLUCOSE 184 mg/dL (74-106); POTASSIUM 3.6 mmol/L (3.5-5.1); SODIUM SERUM 138 mmol/L (136-145); UREA NITROGEN, BLOOD 19 mg/dL (7-18)
[2023-08-19 11:58] LABS: INR 2.21 (0.91-1.10); PROTHROMBIN TIME 22.2 SECS (9.2-11.1)
[2023-08-19 16:00] VITALS: BP 134/57; TEMP 98.2; O2SAT 96
[2023-08-19] MEDS: WARFARIN SODIUM 2 MG TABLET PO SCH (17:25)
[2023-08-19 20:00] VITALS: BP_SYST 114; BP_SYST 128; BP_DIAS 49; BP_DIAS 73; TEMP 98.4; TEMP 98.6; O2SAT 99
[2023-08-19] MEDS: PANTOPRAZOLE 40 MG/PACK PACK PO SCH (21:58)
[2023-08-20] VITALS: BP 135/63; TEMP 98.1; O2SAT 99
[2023-08-20 04:00] VITALS: BP 138/57; TEMP 98.8; O2SAT 98
[2023-08-20 08:53] VITALS: BP 139/65; TEMP 99.1; O2SAT 94
[2023-08-20 10:35] LABS: INR 2.98 (0.91-1.10); PROTHROMBIN TIME 29.4 SECS (9.2-11.1)
[2023-08-20] MEDS: Z GUARD REMEDY 4 OZ OINT TP PRN (10:49)
[2023-08-20 16:39] VITALS: BP 121/52; TEMP 98.1; O2SAT 99
[2023-08-20] MEDS ORDERED: PANT40TA2 PO (17:48)
[2023-08-20 20:00] VITALS: BP 149/59; TEMP 99; TEMP 99.3; O2SAT 99
[2023-08-20 21:10] VITALS: BP 149/59
== END 2023-08-20 21:45 | disposition home health service (06) | DRG 377 ==
LOC: ER 14:19 → TELE 17:38 → MED 08-20 09:22
PROVIDERS: ADMIT Internal Medicine; ATTEND Internal Medicine
PROC: 30233N1 Transfusion of Nonautologous Red Blood Cells into Peripheral Vein, Percutaneous Approach (ICD-10-PCS; principal; 2023-08-16)
PROC: 0DB68ZX Excision of Stomach, Via Natural or Artificial Opening Endoscopic, Diagnostic (ICD-10-PCS; 2023-08-17)
PROC: 5A1D70Z Performance of Urinary Filtration, Intermittent, Less than 6 Hours Per Day (ICD-10-PCS; 2023-08-18)
DX: K29.71 Gastritis, unspecified, with bleeding (principal); G93.41 Metabolic encephalopathy; N18.6 End stage renal disease; R53.2 Functional quadriplegia; I21.A1 Myocardial infarction type 2; I13.2 Hypertensive heart and chronic kidney disease with heart failure and with stage 5 chronic kidney disease, or end stage renal disease; E87.1 Hypo-osmolality and hyponatremia; I50.42 Chronic combined systolic (congestive) and diastolic (congestive) heart failure; D50.0 Iron deficiency anemia secondary to blood loss (chronic); E03.9 Hypothyroidism, unspecified; E87.6 Hypokalemia; Z95.2 Presence of prosthetic heart valve; Z99.2 Dependence on renal dialysis; M89.8X9 Other specified disorders of bone, unspecified site; K21.9 Gastro-esophageal reflux disease without esophagitis; Z79.01 Long term (current) use of anticoagulants; Z95.1 Presence of aortocoronary bypass graft; Z79.4 Long term (current) use of insulin; I25.10 Atherosclerotic heart disease of native coronary artery without angina pectoris; Z86.718 Personal history of other venous thrombosis and embolism; Z82.49 Family history of ischemic heart disease and other diseases of the circulatory system; E11.22 Type 2 diabetes mellitus with diabetic chronic kidney disease; I69.898 Other sequelae of other cerebrovascular disease
CPT/HCPCS: 36415; 71045-TC; 76770-TC; 80048-TC; 80053-TC; 80076-TC; 82140-TC; 82272-TC; 82728-TC; 82962-TC; 83540-TC; 83690-TC; 83735-TC; 84100-TC; 84443-TC; 84484-TC; 85025-TC; 85610-TC; 86850-TC; 87081-TC; 90935-TC; 93307-TC; A4223; A6403; C9113; G0378; J0690; J0885; J1815; J2405; J2704; J2765; J3475; J3490; J7030; J7040; J7050; P9016